=== PATIENT | female | born 1965 | race Caucasian/White ===

== ENCOUNTER 2016-08-13 18:51 | Emergency (ER) | payer OTHER ==
[~2016-08-13] VITALS: Ht 170.2 cm; Wt 96.5 kg
[~2016-08-13 18:51] MED LIST: HYDR-3240 PO; OMEP40CA6 PO; OXYC5TAB3 PO; PREMARIN PO; PROPANOLOL PO; SUMA4CAR SC; ZOFRAN PO
[2016-08-13 19:28] LABS: HEMOGLOBIN 12.2 g/dL (11.7-16.4)
[2016-08-13] MEDS ORDERED: MAALOX/HYOSCYAMINE/LIDOCAINE 45 ML BOTTLE PO ONE (19:30)
[2016-08-13] MEDS ORDERED: MAALOX/HYOSCYAMINE/LIDOCAINE 45 ML BOTTLE ONE (19:38)
[2016-08-13 19:42] LABS: ASPARTATE AMINO TRANSFERASE 10 U/L (15-37); BLOOD UREA NITROGEN 11 mg/dL (7-18)
[2016-08-13 19:50] LABS: IS PT STATUS REG ER OR PRE ER? YES
[2016-08-13 20:51] VITALS: BP 115/81
== END 2016-08-13 20:53 | disposition home or self-care (01) ==
LOC: ED 20:25
DX: R07.89 Other chest pain (principal); K21.9 Gastro-esophageal reflux disease without esophagitis; G43.909 Migraine, unspecified, not intractable, without status migrainosus; Z90.710 Acquired absence of both cervix and uterus
CPT/HCPCS: 36415; 71020; 80053; 84484; 85025; 85379; 93005